=== PATIENT | male | born 1965 | race Caucasian/White ===

== ENCOUNTER 2024-05-27 13:55 | Inpatient (IN) | payer BC ==
[2024-05-27 15:07] VITALS: BMI 28.1
[2024-05-27] MEDS ORDERED: DICYCLOMINE HCL 10 MG CAPSULE PO PRN (15:46)
[2024-05-27] MEDS ORDERED: BENZONATATE 200 MG CAPSULE PO PRN (15:46)
[2024-05-27] MEDS ORDERED: ACETAMINOPHEN 325 MG TABLET (FP) PO PRN (15:46)
[2024-05-27] MEDS ORDERED: BENZOCAINE/MENTHOL (CHLORASEPTIC ) LOZENGE MM PRN (15:46)
[2024-05-27] MEDS ORDERED: BISMUTH SUBSALICYLATE 524 MG/30 ML PO PRN (15:46)
[2024-05-27] MEDS ORDERED: MAG HYDROX/AL HYDROX/SIMETH 30 ML UNIT-DOSE CUP PO PRN (15:46)
[2024-05-27] MEDS ORDERED: MAGNESIUM HYDROX 2400MG/30ML ORAL SUSPENSION 30 ML CUP PO PRN (15:46)
[2024-05-27] MEDS ORDERED: NICOTINE POLACRILEX 2 MG GUM BUC PRN (15:46)
[2024-05-27] MEDS ORDERED: guaiFENesin 600 MG TABLET.ER (FP) PO PRN (15:46)
[2024-05-27] MEDS ORDERED: NICOTINE POLACRILEX 2 MG LOZENGE BC PRN (15:46)
[2024-05-27] MEDS ORDERED: diazePAM 5 MG TABLET PO PRN (15:46)
[2024-05-27] MEDS ORDERED: ONDANSETRON *ODT* 4 MG TABLET SL PRN (15:46)
[2024-05-27] MEDS ORDERED: NALOXONE (NYS OPIOID OVERDOSE PROGRAM) 4 MG/0.1 ML SPRAY NS PRN (15:46)
[2024-05-27] MEDS ORDERED: IBUPROFEN 400 MG TABLET (FP) PO PRN (15:46)
[2024-05-27] MEDS ORDERED: POLYETHYLENE GLYCOL (HEALTHYLAX) 3350 17 GM PACKET PO PRN (15:46)
[2024-05-27] MEDS ORDERED: IBUPROFEN 600 MG TABLET (FP) PO PRN (15:46)
[2024-05-27] MEDS ORDERED: NALOXONE (NARCAN) HCL 4 MG/0.1 ML SPRAY NS PRN (15:46)
[2024-05-27] MEDS ORDERED: LOPERAMIDE HCL 2 MG CAPSULE PO PRN (15:46)
[2024-05-27] MEDS ORDERED: diazePAM 5 MG TABLET ONE (17:05)
[2024-05-27] MEDS ORDERED: methaDONE HCL 10 MG TABLET (FOR DETOX USE ONLY) ONE (17:05)
[2024-05-27] MEDS ORDERED: cloNIDine HCL 0.1 MG TABLET ONE (17:08)
[2024-05-27] MEDS: methaDONE HCL 10 MG TABLET PO ONE (17:12)
[2024-05-27] MEDS: diazePAM 5 MG TABLET PO SCH (17:14)
[2024-05-27] MEDS: cloNIDine HCL 0.1 MG TABLET PO SCH (17:14)
[2024-05-27] MEDS ORDERED: methaDONE HCL 10 MG TABLET PO PRN (17:46)
[2024-05-27] MEDS: MELATONIN 5 MG TABLETS PO SCH (22:59)
[2024-05-27] MEDS: THIAMINE 100 MG TABLET PO SCH (23:00)
[2024-05-28] MEDS: PRENATAL VITAMINS W/ FOLIC ACID TABLET (FP) PO SCH (09:59)
[2024-05-28] MEDS: methaDONE 40 MG, methaDONE 10 MG PO ONE (10:01)
[2024-05-28] MEDS: NICOTINE 14 MG/24 HOURS TOPICAL PATCH TD SCH (10:11)
[2024-05-28 11:56] LABS: HEMATOCRIT 35.2 % (35.4-49); HEMOGLOBIN 11.8 GM/dL (11.7-16.9); MCH 33.1 pg (25.7-33.7); MCHC 33.5 g/dl (32.0-35.9); MEAN CELL VOLUME 98.7 fl (80-96); MEAN PLT VOLUME 8.8 fl (7.5-11.1); PLATELET COUNT 133 10^3/uL (134-434); RBC 3.57 M/mm3 (4.00-5.60); RDW 15.7 % (11.9-15.9); WHITE BLOOD COUNT 3.5 K/mm3 (4.0-10.0)
[2024-05-28 13:18] LABS: CHLORIDE 108 mmol/L (98-107); POTASSIUM 4.1 mmol/L (3.5-5.1); SODIUM 138 mmol/L (136-145)
[2024-05-28 13:23] LABS: ALBUMIN 2.6 g/dl (3.4-5.0); ANION GAP 5 mmol/L (4-13); CALCIUM 8.8 mg/dL (8.5-10.1); CO2 25 mmol/L (21-32); GLUCOSE,RANDOM 112 mg/dL (74-106)
[2024-05-28 13:25] LABS: SGPT/ALT 61 U/L (13-61)
[2024-05-28 13:26] LABS: SGOT/AST 110 U/L (15-37)
[2024-05-28 13:27] LABS: BILIRUBIN,TOTAL 1.3 mg/dL (0.2-1); TOT PROT 7.6 g/dl (6.4-8.2)
[2024-05-28 13:28] LABS: ALK PHOS 79 U/L (45-117)
[2024-05-28] MEDS: METHOCARBAMOL 500 MG TABLET PO PRN (17:39)
[2024-05-28] MEDS: SUVOREXANT 5 MG TABLET PO PRN (23:15)
[2024-05-29] MEDS ORDERED: cloNIDine HCL 0.1 MG TABLET PO PRN
[2024-05-29] MEDS: diazePAM 5 MG TABLET PO SCH (06:22)
[2024-05-29] MEDS: methaDONE 40 MG, methaDONE 20 MG PO ONE (09:24)
[2024-05-30] MEDS: diazePAM 5 MG TABLET PO SCH (05:55)
[2024-05-30] MEDS: methaDONE 40 MG, methaDONE 30 MG PO ONE (10:19)
[2024-05-30] MEDS: hydrOXYzine PAMOATE 25 MG CAPSULE (FP) PO PRN (22:54)
[2024-05-31] MEDS: diazePAM 5 MG TABLET PO ONE (05:33)
[2024-05-31] MEDS: methaDONE HCL 40 MG DISPERSABLE TABLET PO ONE (10:36)
[2024-05-31] MEDS: SUVOREXANT 5 MG TABLET PO PRN (22:15)
[2024-06-01] MEDS: methaDONE 80 MG, methaDONE 10 MG PO ONE (09:32)
[2024-06-02 09:35] VITALS: BP 105/73; PULSE 90; RESP 16; TEMP 97.8
[2024-06-02] MEDS: methaDONE 80 MG, methaDONE 10 MG PO ONE (10:23)
[2024-06-02] MEDS: methaDONE HCL 10 MG TABLET PO ONE (10:29)
== END 2024-06-02 11:20 | disposition home or self-care (01) | DRG 773 ==
LOC: YASAS 13:55 → Y3N 17:09
PROVIDERS: ADMIT Allergy & Immunology; ATTEND Surgery
PROC: HZ2ZZZZ Detoxification Services for Substance Abuse Treatment (ICD-10-PCS; principal; 2024-05-27)
DX: F11.23 Opioid dependence with withdrawal (principal); F13.230 Sedative, hypnotic or anxiolytic dependence with withdrawal, uncomplicated; F15.20 Other stimulant dependence, uncomplicated; F17.210 Nicotine dependence, cigarettes, uncomplicated; F19.282 Other psychoactive substance dependence with psychoactive substance-induced sleep disorder; F41.9 Anxiety disorder, unspecified
CPT/HCPCS: 36415; 80053; 80305; 80307; 85027; 86780; 93005; 93010

== ENCOUNTER 2024-07-09 10:47 | Inpatient (IN) | payer BC ==
[2024-07-09 11:34] VITALS: BMI 28.5
[2024-07-09] MEDS ORDERED: IBUPROFEN 400 MG TABLET (FP) PO PRN (12:03)
[2024-07-09] MEDS ORDERED: BENZOCAINE/MENTHOL (CHLORASEPTIC ) LOZENGE MM PRN (12:03)
[2024-07-09] MEDS ORDERED: POLYETHYLENE GLYCOL (HEALTHYLAX) 3350 17 GM PACKET PO PRN (12:03)
[2024-07-09] MEDS ORDERED: NALOXONE (NARCAN) HCL 4 MG/0.1 ML SPRAY NS PRN (12:03)
[2024-07-09] MEDS ORDERED: P-EPHED 60MG/TRIPROLIDI 2.5MG TABLET PO PRN (12:03)
[2024-07-09] MEDS ORDERED: hydrOXYzine PAMOATE 25 MG CAPSULE (FP) PO PRN (12:03)
[2024-07-09] MEDS ORDERED: NICOTINE POLACRILEX 2 MG LOZENGE BC PRN (12:03)
[2024-07-09] MEDS ORDERED: LOPERAMIDE HCL 2 MG CAPSULE PO PRN (12:03)
[2024-07-09] MEDS ORDERED: MAG HYDROX/AL HYDROX/SIMETH 30 ML UNIT-DOSE CUP PO PRN (12:03)
[2024-07-09] MEDS ORDERED: MAGNESIUM HYDROX 2400MG/30ML ORAL SUSPENSION 30 ML CUP PO PRN (12:03)
[2024-07-09] MEDS ORDERED: guaiFENesin 600 MG TABLET.ER (FP) PO PRN (12:03)
[2024-07-09] MEDS ORDERED: ACETAMINOPHEN 325 MG TABLET (FP) PO PRN (12:03)
[2024-07-09] MEDS ORDERED: IBUPROFEN 600 MG TABLET (FP) PO PRN (12:03)
[2024-07-09] MEDS ORDERED: BENZONATATE 200 MG CAPSULE PO PRN (12:03)
[2024-07-09] MEDS ORDERED: NICOTINE POLACRILEX 2 MG GUM BUC PRN (12:03)
[2024-07-09] MEDS: methaDONE HCL 10 MG TABLET PO ONE (17:36)
[2024-07-09] MEDS: SULFAMETHOXAZOLE/TRIMETHOPRIM 800MG/160MG D.S. TABLET PO SCH (22:27)
[2024-07-09] MEDS: THIAMINE 100 MG TABLET PO SCH (22:27)
[2024-07-09] MEDS: MELATONIN 5 MG TABLETS PO SCH (22:27)
[2024-07-10] MEDS ORDERED: methaDONE HCL 40 MG DISPERSABLE TABLET PO ONE (10:00)
[2024-07-10] MEDS: methaDONE HCL 10 MG TABLET PO ONE (10:14)
[2024-07-10] MEDS: PRENATAL VITAMINS W/ FOLIC ACID TABLET (FP) PO SCH (10:14)
[2024-07-10 16:47] LABS: HEMATOCRIT 31.7 % (35.4-49); HEMOGLOBIN 10.8 GM/dL (11.7-16.9); MCH 33.7 pg (25.7-33.7); MEAN CELL VOLUME 99.2 fl (80-96); MEAN PLT VOLUME 8.8 fl (7.5-11.1); POTASSIUM 3.8 mmol/L (3.5-5.1); RDW 14.3 % (11.9-15.9); WHITE BLOOD COUNT 4.3 K/mm3 (4.0-10.0)
[2024-07-10 16:48] LABS: CALCIUM 8.7 mg/dL (8.5-10.1)
[2024-07-10 16:49] LABS: ALBUMIN 2.8 g/dl (3.4-5.0)
[2024-07-10 16:52] LABS: CREATININE 1.1 mg/dL (0.55-1.3)
[2024-07-10 16:53] LABS: BILIRUBIN,TOTAL 1.1 mg/dL (0.2-1)
[2024-07-10 16:54] LABS: TOT PROT 7.8 g/dl (6.4-8.2)
[2024-07-10 17:07] LABS: EPI CELLS 1 /uL (0-25.1); HYALINE CASTS 2 /uL (0-3.1); URINE APPEARANCE CLEAR; URINE BACTERIA >9,000 /uL (0-1359); URINE BILIRUBIN NEGATIVE (NEGATIVE); URINE COLOR YELLOW; URINE GLUCOSE (UA) NEGATIVE (NEGATIVE); URINE KETONE NEGATIVE (NEGATIVE); URINE LEUK ESTERASE 2+ (NEGATIVE); URINE NITRITE POSITIVE (NEGATIVE); URINE PROTEIN NEGATIVE (NEGATIVE); URINE RBC 5 /uL (0-23.9); URINE WBC 222 /uL (0-25.8)
[2024-07-10 17:48] LABS: PLATELET COUNT 98 10^3/uL (134-434)
[2024-07-10] MEDS: NITROFURANTOIN MONOHYD/M-CRYST 100 MG CAPSULE PO SCH (22:44)
[2024-07-11] MEDS ORDERED: methaDONE 40 MG, methaDONE 10 MG PO ONE (10:00)
[2024-07-11] MEDS ORDERED: methaDONE HCL 40 MG DISPERSABLE TABLET PO ONE (10:00)
[2024-07-11] MEDS: methaDONE HCL 40 MG DISPERSABLE TABLET PO ONE (10:08)
[2024-07-12 09:23] LABS: HEMATOCRIT 33.6 % (35.4-49); HEMOGLOBIN 11.5 GM/dL (11.7-16.9); MCH 33.8 pg (25.7-33.7); MCHC 34.3 g/dl (32.0-35.9); MEAN CELL VOLUME 98.5 fl (80-96); PLATELET COUNT 127 10^3/uL (134-434); RBC 3.42 M/mm3 (4.00-5.60); RDW 15.1 % (11.9-15.9); WHITE BLOOD COUNT 5.9 K/mm3 (4.0-10.0)
[2024-07-12] MEDS ORDERED: LORazepam 2 MG/ML SDV VIAL ONE (11:06)
[2024-07-12] MEDS: methaDONE HCL 40 MG DISPERSABLE TABLET PO SCH (14:38)
[2024-07-12] MEDS: diazePAM 5 MG TABLET PO SCH (17:35)
[2024-07-13] MEDS: diazePAM 5 MG TABLET PO SCH (06:03)
[2024-07-13] MEDS: levETIRAcetam 500 MG TABLET (FP) PO SCH (12:24)
[2024-07-14 16:11] VITALS: RESP 18
[2024-07-15] MEDS: diazePAM 5 MG TABLET PO ONE (05:22)
[2024-07-15] MEDS ORDERED: NALOXONE (NYS OPIOID OVERDOSE PROGRAM) 4 MG/0.1 ML SPRAY NS PRN (08:15)
[2024-07-15 13:04] VITALS: BP 110/68; PULSE 69; TEMP 98.4
== END 2024-07-15 14:51 | disposition other institution (70) | DRG 773 ==
LOC: YASAS 10:47 → Y3NR 13:05 → Y3N 13:54
PROVIDERS: ADMIT Allergy & Immunology; ATTEND Surgery
PROC: HZ2ZZZZ Detoxification Services for Substance Abuse Treatment (ICD-10-PCS; principal; 2024-07-09)
DX: F13.230 Sedative, hypnotic or anxiolytic dependence with withdrawal, uncomplicated (principal); F11.20 Opioid dependence, uncomplicated; F17.210 Nicotine dependence, cigarettes, uncomplicated; F32.A Depression, unspecified; G47.00 Insomnia, unspecified; N39.0 Urinary tract infection, site not specified; R56.9 Unspecified convulsions; R60.0 Localized edema; Z99.89 Dependence on other enabling machines and devices
CPT/HCPCS: 36415; 71045-TC-FY; 80053; 80305; 80307; 81003; 82962; 85027; 87811; 93005; 93010; 99283-25

== ENCOUNTER 2024-07-12 11:44 | Emergency (ER) | payer BC ==
[2024-07-12 12:04] VITALS: BP 117/99; PULSE 88; RESP 19; BMI 27.3
== END 2024-07-12 13:16 | disposition left against medical advice (07) ==
LOC: JER 11:44
DX: R56.9 Unspecified convulsions (principal); F11.90 Opioid use, unspecified, uncomplicated
CPT/HCPCS: 82962; 93005; 93010; 99283-25

== ENCOUNTER 2024-07-15 14:55 | Inpatient (IN) | payer BC ==
[2024-07-15] MEDS ORDERED: LOPERAMIDE HCL 2 MG CAPSULE PO PRN (18:54)
[2024-07-15] MEDS ORDERED: IBUPROFEN 600 MG TABLET (FP) PO PRN (18:54)
[2024-07-15] MEDS ORDERED: BENZOCAINE/MENTHOL (CHLORASEPTIC ) LOZENGE MM PRN (18:54)
[2024-07-15] MEDS ORDERED: guaiFENesin 600 MG TABLET.ER (FP) PO PRN (18:54)
[2024-07-15] MEDS ORDERED: P-EPHED 60MG/TRIPROLIDI 2.5MG TABLET PO PRN (18:54)
[2024-07-15] MEDS ORDERED: NALOXONE (NARCAN) HCL 4 MG/0.1 ML SPRAY NS PRN (18:54)
[2024-07-15] MEDS ORDERED: MAG HYDROX/AL HYDROX/SIMETH 30 ML UNIT-DOSE CUP PO PRN (18:54)
[2024-07-15] MEDS ORDERED: BENZONATATE 200 MG CAPSULE PO PRN (18:54)
[2024-07-15] MEDS ORDERED: ACETAMINOPHEN 325 MG TABLET (FP) PO PRN (18:54)
[2024-07-15] MEDS ORDERED: IBUPROFEN 400 MG TABLET (FP) PO PRN (18:54)
[2024-07-15] MEDS ORDERED: NALOXONE HCL 0.4 MG/ML VIAL IVPUSH PRN (18:54)
[2024-07-15] MEDS ORDERED: MAGNESIUM HYDROX 2400MG/30ML ORAL SUSPENSION 30 ML CUP PO PRN (18:54)
[2024-07-15] MEDS ORDERED: POLYETHYLENE GLYCOL (HEALTHYLAX) 3350 17 GM PACKET PO PRN (18:54)
[2024-07-15] MEDS ORDERED: NICOTINE POLACRILEX 2 MG GUM BUC PRN (18:54)
[2024-07-15] MEDS: THIAMINE 100 MG TABLET PO SCH (21:48)
[2024-07-15] MEDS: MELATONIN 5 MG TABLETS PO SCH (21:48)
[2024-07-16] MEDS: PRENATAL VITAMINS W/ FOLIC ACID TABLET (FP) PO SCH (10:12)
[2024-07-16] MEDS: SULFAMETHOXAZOLE/TRIMETHOPRIM 800MG/160MG D.S. TABLET PO SCH (11:26)
[2024-07-16] MEDS: methaDONE HCL 40 MG DISPERSABLE TABLET PO SCH (11:26)
[2024-07-16] MEDS: NITROFURANTOIN MONOHYD/M-CRYST 100 MG CAPSULE PO SCH (11:36)
[2024-07-16] MEDS: levETIRAcetam 500 MG TABLET (FP) PO SCH (21:12)
[2024-07-17] MEDS: methaDONE HCL 40 MG DISPERSABLE TABLET PO SCH (06:30)
[2024-07-28] MEDS: PETROLATUM, WHITE 30 GM TUBE TP SCH (14:50)
[2024-07-29 11:40] LABS: URINE APPEARANCE CLEAR; URINE BILIRUBIN NEGATIVE (NEGATIVE); URINE COLOR YELLOW; URINE GLUCOSE (UA) NEGATIVE (NEGATIVE); URINE KETONE NEGATIVE (NEGATIVE); URINE LEUK ESTERASE NEGATIVE (NEGATIVE); URINE NITRITE NEGATIVE (NEGATIVE); URINE PROTEIN NEGATIVE (NEGATIVE)
[2024-07-29 17:02] LABS: INR 1.24 (0.83-1.09); PROTHROMBIN TIME (PATIENT) 14.2 SEC (9.7-13.0)
[2024-07-30] MEDS: LACTULOSE 20 GM/30 ML UDC (FOR ORAL USE ONLY) PO SCH (14:22)
[2024-08-10 06:42] VITALS: RESP 18
[2024-08-11 06:49] VITALS: BP 122/69; PULSE 78; TEMP 97.8
[2024-08-11] MEDS: NALOXONE (NYS OPIOID OVERDOSE PROGRAM) 4 MG/0.1 ML SPRAY NS SCH (09:55)
== END 2024-08-11 10:03 | disposition home or self-care (01) | DRG 772 ==
LOC: YASAS 14:55 → Y5N 14:56
PROVIDERS: ADMIT Psychiatry & Neurology Pain Medicine; ATTEND Family Medicine Addiction Medicine
PROC: HZ42ZZZ Group Counseling for Substance Abuse Treatment, Cognitive-Behavioral (ICD-10-PCS; principal; 2024-07-15)
DX: F11.20 Opioid dependence, uncomplicated (principal); F13.20 Sedative, hypnotic or anxiolytic dependence, uncomplicated; F17.210 Nicotine dependence, cigarettes, uncomplicated; F19.282 Other psychoactive substance dependence with psychoactive substance-induced sleep disorder; E72.20 Disorder of urea cycle metabolism, unspecified; M54.2 Cervicalgia; M54.50 Low back pain, unspecified; G89.29 Other chronic pain; R60.0 Localized edema; B18.2 Chronic viral hepatitis C; Z99.89 Dependence on other enabling machines and devices
CPT/HCPCS: 36415; 81003; 82140; 82607; 82652; 82746; 83735; 85610; 86803; 87522